=== PATIENT | male | born 1960 | race Caucasian/White ===

== ENCOUNTER 2018-04-22 01:15 | Outpatient (CLI) | payer BC, SELFPAY ==
--- NOTE | 2018-04-22 07:25 | DI.US_ITS ---
SYMPTOM/DIAGNOSIS: POSTERIOR LT KNEE PAIN, M25.56 LEFT LOWER EXTREMITY ULTRASOUND: There is no evidence of DVT. Note is made of a posterior medial fluid collection measuring 5.7 by 3.4 by 0.5 cm. No color flow is identified. This fluid collection likely represents a Alvarez's cyst.
== END 2018-04-22 01:35 ==
PROVIDERS: PCP Nurse Practitioner Family; Visit Provider Nurse Practitioner Family
DX: M25.562 Pain in left knee (principal); M71.22 Synovial cyst of popliteal space [Baker], left knee
CPT/HCPCS: 93971